=== PATIENT | male | born 1940 | race Asian ===

== ENCOUNTER 2019-05-17 10:58 | Outpatient (CLI) | payer MEDICARE, OTHER | END 2019-05-17 10:59 | disposition short-term general hospital (02) | LOC: EMS 10:58 | PROVIDERS: ATTEND Surgery | DX: S06.5X9A Traumatic subdural hemorrhage with loss of consciousness of unspecified duration, initial encounter (principal); X58.XXXA Exposure to other specified factors, initial encounter | CPT/HCPCS: A0425; A0427 ==

== ENCOUNTER 2021-11-01 09:23 | Emergency (ER) | payer MEDICARE, OTHER ==
--- NOTE | 2021-11-01 10:27 | ED Physician Documentation ---
PD HPI ABD PAIN - Stated complaint Stated Complaint: RUQ PX/RT SIDE BACK PX - Chief complaint Chief Complaint: Abd Pain - History obtained from History obtained from: Patient - History of Present Illness Timing - onset: How many days ago (4) Timing - duration: Days (4) Timing - details: Gradual onset, Still present, Constant Quality: Cramping, Aching, Pain Location: RUQ Radiation: Right flank Improved by: Laying still. No: Eating Worsened by: Eating, Moving, Palpation Associated symptoms: Nausea. No: Fever, Vomiting, Diarrhea, Dysuria Similar symptoms before: Has not had sx before Review of Systems Constitutional: denies: Fever, Chills Nose: denies: Rhinorrhea / runny nose, Congestion Throat: denies: Sore throat Cardiac: denies: Chest pain / pressure, Palpitations Respiratory: denies: Cough GI: reports: Abdominal Pain, Nausea. denies: Vomiting, Diarrhea, Bloody / black stool : denies: Dysuria Skin: denies: Rash, Lesions Musculoskeletal: denies: Neck pain, Back pain Neurologic: reports: Generalized weakness. denies: Focal weakness, Numbness, Near syncope Immunocompromised: denies: Immunocompromised PD PAST MEDICAL HISTORY - Past Medical History Cardiovascular: None Respiratory: None Endocrine/Autoimmune: None GI: None - Past Surgical History Past Surgical History: No - Present Medications Home Medications: Ambulatory Orders Medication Instructions Recorded Confirmed Ondansetron Odt [Zofran] 4 mg TL Q6H PRN #10 tablet 11/01/21 Oxycodone HCl/Acetaminophen 1 each PO Q6H PRN #14 tablet 11/01/21 [Percocet 5-325 mg Tablet] - Allergies Allergies/Adverse Reactions: Allergies Allergy/AdvReac Type Severity Reaction Status Date / Time lisinopril Allergy Edema Verified 11/01/21 10:03 PD ED PE NORMAL - Vitals Vital signs reviewed: Yes - General General: Alert and oriented X 3, Well developed/nourished, Other (appears in pain right upper abd. ) - HEENT HEENT: Pharynx benign - Neck Neck: Supple, no meningeal sign, No adenopathy - Cardiac Cardiac: RRR, No murmur - Respiratory Respiratory: Clear bilaterally - Abdomen Abdomen: Soft, Non distended, No organomegaly, Other (Acutely tender right upper quadrant with localized guarding and percussion tenderness. Some referred tenderness from the left upper as well. Lower abdomen nontender. No CVA tenderness.). No: Normal bowel sounds (increased general sounds. ) - Male Male : Deferred - Rectal Rectal: Deferred - Back Back: No CVA TTP - Derm Derm: Normal color, Warm and dry - Extremities Extremities: Normal ROM s pain, No edema, No calf tenderness / cord - Neuro Neuro: Alert and oriented X 3, No motor deficit, Normal speech Results - Vitals Vitals: Vital Signs - 24 hr 11/01/21 11/01/21 11/01/21 09:53 10:11 12:02 Temperature 35.9 C L Heart Rate 101 H 89 75 Respiratory 24 19 11 L Rate Blood Pressure 94/55 L 115/67 111/56 L O2 Saturation 96 96 11/01/21 11/01/21 11/01/21 13:00 15:20 16:37 Temperature 36.8 C Heart Rate 76 80 74 Respiratory 10 L 23 18 Rate Blood Pressure 119/61 113/54 L 109/55 L O2 Saturation 96 93 94 11/01/21 17:00 Temperature Heart Rate 79 Respiratory 20 Rate Blood Pressure 110/65 O2 Saturation 95 Oxygen O2 Source Room air - EKG (time done) 09:57 Rate: Rate (enter#) (97) Rhythm: NSR [place]: Normal Intervals: Normal HI, RBBB QRS: Normal Ischemia: Normal ST segments, Non specific changes. No: ST elevation c/w ischemia, ST depression Compare to prior EKG: Old EKG unavailable - Labs Labs: Laboratory Tests 11/01/21 11/01/21 11/01/21 10:06 11:12 11:12 WBC 7.1 RBC 6.03 Hgb 14.2 Hct 42.9 MCV 71.1 L MCH 23.5 L MCHC 33.1 RDW 13.8 Plt Count 133 MPV 9.9 Neut # (Auto) Not Reportable Lymph # (Auto) Not Reportable [place] # (Auto) Not Reportable Eos # (Auto) Not Reportable Baso # (Auto) Not Reportable Absolute Nucleated RBC Not Reportable Total Counted 100 Band Neuts % (Manual) 9 Abnorm Lymph % (Manual) 0 Nucleated RBC % Not Reportable Neutrophils # (Manual) 5.9 Lymphocytes # (Manual) 0.6 L Monocytes # (Manual) 0.6 Eosinophils # (Manual) 0.0 Basophils # (Manual) 0.0 Differential Comment MANUAL DIFFERENTIAL Platelet Estimate NORMAL (130-450,000) Platelet Morphology NORMAL APPEARANCE RBC Morph Micro Appear NORMAL APPEARANCE Sodium 131 L Potassium 4.0 Chloride 96 L Carbon Dioxide 24 Anion Gap 11.0 BUN 49 H Creatinine 1.6 H Estimated GFR (MDRD) 41 L Glucose 220 H Calcium 9.2 Total Bilirubin 1.1 H AST 37 ALT 28 Alkaline Phosphatase 45 Total Protein 7.3 Albumin 3.3 Globulin 4.0 Albumin/Globulin Ratio 0.8 L Lipase 17 L Urine Color DARK YELLOW Urine Clarity HAZY Urine pH 5.0 Ur Specific [place] >=1.030 H Urine Protein 30 H Urine Glucose (UA) NEGATIVE Urine Ketones NEGATIVE Urine Occult Blood NEGATIVE Urine Nitrite NEGATIVE Urine Bilirubin NEGATIVE Urine Urobilinogen 0.2 (NORMAL) Ur Leukocyte Esterase NEGATIVE Urine RBC None Seen Urine WBC 0-3 Ur Squamous Epith Cells NONE SEEN Urine Bacteria Moderate H Ur Microscopic Review INDICATED Urine Culture Comments NOT INDICATED - Rads (name of study) Abd/pelvic CT Radiology: Prelim report reviewed (Bladder wall thickening and pericholecystic fluid and edema. Some wall thickening into the first part of the duodenum that appeared extension from the gallbladder.), See rad report PD MEDICAL DECISION MAKING - ED course Complexity details: re-evaluated patient (Remains relatively low pain with still some localized tenderness right upper quadrant but less than it was. Given the repeat dose of medicine.), considered differential (The patient's symptoms are consistent with possible gallbladder. Labs are good. Ultrasound showed acute cholecystitis with some extension of duodenitis felt related to the gallbladder per radiology. will talk with Dr. Miramontes.), d/w patient ED course: Dr. Mack was in doing a colonoscopy when initially consulted or called for. He came to the department after his procedure. I was in the room seeing the patient so we went back and did another colonoscopy. Subsequently came back again. I talked to him about the patient. He states he would come back and see the patient after the next colonoscopy. The patient had a relatively prolonged ED stay awaiting surgical consultation after he did several colonoscopies. Subsequently came and felt the patient could be treated outpatient. The patient was agreeable to this. He does have a fair amount of inflammation of the gallbladder as well as the duodenum so unclear whether he will maintain well with oral medication but we can give it a try. Patient had return precautions for uncontrollable pain, vomiting, fever, other concerns. Departure - Departure Disposition: 01 Home, Self Care Clinical Impression: Right upper quadrant abdominal pain, Acute cholecystitis Condition: Stable Record reviewed to determine appropriate education?: Yes Instructions: ED Gallbladder Infec Conf Follow-Up: Radha Dudley MD [Primary Care Provider] - Fabiano Miramontes MD [Provider Admit Priv/Credential] - Prescriptions: Oxycodone HCl/Acetaminophen [Percocet 5-325 mg Tablet] 1 each PO Q6H PRN #14 tablet PRN Reason: pain Ondansetron Odt [Zofran] 4 mg TL Q6H PRN #10 tablet PRN Reason: Nausea / Vomiting Comments: Frequent fluids to maintain hydration. [place] food without any fatty foods over the next several days until follow-up next week. Your ultrasound and blood tests are consistent with an inflammation of the gallbladder (cholecystitis). This may quiet down with some anti-inflammatories and pain medicine and nonfatty foods over the next several days. If the pain and symptoms continue, it may be the solution will be gallbladder surgery to remove it. Return if worsening pain, repetitive vomiting, fever or other concerns. Otherwise follow-up with the surgery clinic next week, call first thing Thursday morning for a follow-up appointment and let them know that you have been seen here in the ER. I transmitted your prescriptions to [facility] pharmacy. [facility] but you would not be able to get any medications until Thursday and you are likely to need some in the meantime. Discharge Date/Time: 11/01/21 17:23
[2021-11-01] MEDS ORDERED: KETOROLAC 15 MG/ML VIAL IVP STA (11:00)
[2021-11-01] MEDS ORDERED: ONDANSETRON 4 MG/2 ML VIAL IVP STA (11:00)
[2021-11-01] MEDS ORDERED: HYDROmorphone 1 MG/ML CARPUJECT IVP STA (11:00)
[2021-11-01] MEDS ORDERED: SODIUM CHLORIDE 0.9% 1,000 ML IV STA ×2 (11:00→15:36)
[2021-11-01 11:21] LABS: BASOPHILS % (AUTO) 0.6 %; EOSINOPHILS % (AUTO) 1.5 %; HCT - HEMATOCRIT 42.9 % (42.0-52.0); HGB - HEMOGLOBIN 14.2 g/dL (14.0-18.0); LYMPHOCYTES % (AUTO) 6.6 %; MEAN CORPUSCULAR HEMOGLOBIN 23.5 pg (27.0-31.0); MEAN CORPUSCULAR HGB CONC 33.1 g/dL (32.0-36.0); MEAN CORPUSCULAR VOLUME 71.1 fL (80.0-94.0); MEAN PLATELET VOLUME 9.9 fL (7.4-11.4); MONOCYTES % (AUTO) 8.7 %; NEUTROPHILS % (AUTO) 82.2 %; PLT - PLATELET COUNT 133 10^3/uL (130-450); RED BLOOD COUNT 6.03 10^6/uL (4.70-6.10); RED CELL DISTRIBUTION WIDTH 13.8 % (12.0-15.0); WHITE BLOOD COUNT 7.1 x10^3/uL (4.8-10.8)
[2021-11-01 11:25] LABS: ABNORMAL LYMPHS % (MANUAL) 0 %
[2021-11-01 11:33] LABS: ALBUMIN 3.3 g/dL (3.2-5.5); ALBUMIN/GLOBULIN RATIO 0.8 (1.0-2.2); BILIRUBIN,TOTAL 1.1 mg/dL (0.2-1.0); CALCIUM 9.2 mg/dL (8.5-10.3); CREATININE 1.6 mg/dL (0.6-1.2); TOTAL PROTEIN 7.3 g/dL (6.7-8.2)
[2021-11-01 11:43] LABS: BAND NEUTROPHILS % (MANUAL) 9 %; DIFFERENTIAL COMMENT MANUAL DIFFERENTIAL; LYMPHOCYTES # (MANUAL) 0.6 10^3/uL (1.5-3.5); LYMPHOCYTES % (MANUAL) 8 %; MONOCYTES # (MANUAL) 0.6 10^3/uL (0.0-1.0); NEUTROPHILS # (MANUAL) 5.9 10^3/uL (1.5-6.6); PLATELET ESTIMATE, MANUAL NORMAL (130-450,000) (NORMAL); PLATELET MORPHOLOGY NORMAL APPEARANCE (NORMAL); RBC MORPHOLOGY (MULTIPLE) NORMAL APPEARANCE (NORMAL)
[2021-11-01] MEDS ORDERED: iohexoL-300 100 ML VIAL ONE (11:50)
[2021-11-01 11:53] LABS: BILIRUBIN,URINE NEGATIVE (NEGATIVE); GLUCOSE, URINE (UA) NEGATIVE (NEGATIVE); KETONES,URINE (UA) NEGATIVE (NEGATIVE); LEUKOCYTE ESTERASE, URINE NEGATIVE (NEGATIVE); NITRITE,URINE NEGATIVE (NEGATIVE); OCCULT BLOOD,URINE NEGATIVE (NEGATIVE); PROTEIN,URINE 30 mg/dL (NEGATIVE); UROBILINOGEN,URINE 0.2 (NORMAL) E.U./dL (NORMAL)
[2021-11-01 11:58] LABS: CLARITY,URINE HAZY (CLEAR)
[2021-11-01 12:02] LABS: BACTERIA,URINE Moderate /HPF (None Seen); RBC,URINE None Seen /HPF (0-5); SQUAMOUS EPITHELIAL CELL,UR NONE SEEN (<= Few); WBC,URINE 0-3 /HPF (0-3)
[2021-11-01] MEDS ORDERED: iohexoL-300 100 ML VIAL IVP ONE (12:10)
--- NOTE | 2021-11-01 12:41 | CT Report ---
PROCEDURE: Abdomen/Pelvis W INDICATIONS: Abdominal pain, acute, nonlocalized CONTRAST: IV CONTRAST: Isovue 300 ml: 100 PO CONTRAST: *NO PO CONTRAST TECHNIQUE: After the administration of intravenous contrast, 5 mm thick sections acquired from the diaphragms to the symphysis. 5 mm thick coronal and sagittal reformats were acquired. For radiation dose reducti on, the following was used: automated exposure control, adjustment of mA and/or kV according to mervin ent size. COMPARISON: 05/11/2014. FINDINGS: Image quality: Excellent. ABDOMEN: Lung bases: There is a small right pleural effusion. Linear opacities are demonstrated in the lung ba ses consistent with atelectasis. Small regions of consolidation or confluent atelectasis also demonst rated along the right hemidiaphragm and medially in the left lower lobe. There are bilateral calcifie d pleural plaques consistent with prior asbestos exposure. Heart size is mildly enlarged. There is ex tensive coronary arterial vascular calcifications. Solid organs: There is hypoattenuation of the liver consistent with fatty infiltration with relative sparing along the gallbladder fossa. There is also heterogeneous enhancement anteriorly within the li rashad along the gallbladder fossa. A small subcapsular fluid collection is demonstrated anteriorly chayo g the right hepatic lobe with associated mild mass effect on the hepatic parenchyma. The collection m easures approximately 2.0 x 0.8 x 3.0 cm. The gallbladder is distended with wall thickening and enhancement as well as pericholecystic fat stra nding. No calcified gallstones identified. Biliary system is non dilated. Pancreas enhances normally. No adrenal nodules. Kidneys demonstrate no hydronephrosis. Peritoneum and bowel: There is mild segmental wall thickening of the first and second portions of th e duodenum with mild adjacent fat stranding. There is a duodenal diverticulum along the distal portio n of the duodenum adjacent to the uncinate process without associated wall thickening. The remainder of the small bowel demonstrates normal caliber and wall thickness. No pericecal inflammatory changes to suggest appendicitis. There is gas and fluid distention of the descending and transverse colon wit h air-fluid levels in the ascending colon. No transition points to suggest obstruction. Findings like ly represent a gastroenteritis. There is colonic diverticulosis without acute diverticular colitis. T here is a small amount of intraperineal free fluid predominantly within the right upper quadrant. Nodes and vessels: No retroperitoneal or mesenteric adenopathy by size criteria. Aorta and inferior vena cava are normal in size. Miscellaneous: No ventral hernias. PELVIS: Genitourinary: Bladder wall thickness is normal. Miscellaneous: No inguinal hernias or adenopathy. Bones: No suspicious bony lesions. Indistinct sclerosis within the S1 vertebra appears similar to t he prior study. No vertebral body compression fractures. IMPRESSION: 1. Gallbladder wall thickening and enhancement with pericholecystic fat stranding. Although no calcif ied gallstones are identified, findings are suggestive of acute cholecystitis. Further evaluation may be obtained with ultrasound if clinically indicated. Findings discussed with Dr. Shah on 2 at 12:35 PM. 2. Heterogeneous enhancement within the liver along the gallbladder fossa likely represents reactive changes. Diffuse fatty infiltration is also demonstrated. 3. Small subcapsular fluid collection along the anterior right hepatic lobe is nonspecific. Although this demonstrates a thin wall, given its proximity to the inflammatory changes along the gallbladder a developing abscess cannot be excluded. 4. Segmental wall thickening and enhancement of the first and second portions of the duodenum likely representing reactive changes secondary to adjacent inflammatory changes involving the gallbladder. T he differential includes a nonspecific duodenitis. 5. Small right pleural effusion with associated atelectasis. Small areas of consolidation along the r ight hepatic dome and medial left lower lobe likely represent atelectasis and less likely pneumonia. 6. Bilateral calcified pleural plaques demonstrated consistent with sequelae of prior specimens expos ure. Reviewed by: Kyle Borden MD on 11/01/2021 12:40 PM PST Approved by: Kyle Borden MD on 11/01/2021 12:40 PM PST Station ID: [id number]
[2021-11-01] MEDS ORDERED: HYDROcod/ACETAM 5/325 MG TABLET PO STA (15:54)
--- NOTE | 2021-11-01 16:05 | CONSULTATION NOTE ---
Referring Provider Consult Date: 11/01/21 Chief Complaint - Chief Complaint Chief Complaint: right upper quadrant pain x 2 days History of Present Illness - History Obtained From Records Reviewed: yes History obtained from: pt Exam Limitations: none - History of Present Illness HPI Comment/Other: ruq pain going to back yesterday starting 2 days ago after eating [employer] rot[employer]erie chicken. feeling better after being seen, evaluated, treated in ED. Minimal pain and tenderness. No nausea. No similar prior symptoms. Meds/Allgy - Allergies Allergies/Adverse Reactions: Allergies Allergy/AdvReac Type Severity Reaction Status Date / Time lisinopril Allergy Edema Verified 11/01/21 10:03 Review of Systems - Other Findings Other Findings: 10 pt ros as above otherwise unremarkable denies heart or lung problem Exam - Vital Signs Reviewed Vital Signs: Yes Vital Signs: Vital Signs x48h Temp Pulse Resp BP Pulse Ox 11/01/21 15:20 80 23 113/54 L 93 11/01/21 13:00 76 10 L 119/61 96 11/01/21 12:02 75 11 L 111/56 L 11/01/21 10:11 89 19 115/67 96 11/01/21 09:53 35.9 C L 101 H 24 94/55 L 96 - Physical Exam General Appearance: positive: No acute distress, Alert Eyes Bilateral: positive: PERRL, EOMI, No scleral icterus ENT: positive: No signs of dehydration Neck: positive: No JVD Respiratory: positive: No respiratory distress, Breath sounds nml Cardiovascular: positive: Regular rate & rhythm Abdomen: positive: No distention, Other (minimal tenderness to deep palpation right upper quadrant) Neurologic/Psychiatric: positive: Oriented x3 Conclusion/Plan - Problem List (1) Gallbladder pain Conclusion/Plan: he is feeling improved. if he can tolerate clears and pain reasonable he may go home and follow up with surgery next week. gallbladder surgery and importance of avoiding fatty foods discussed. He states his had her gallbladder removed [phone] office - Lab Results Fish Bones: 11/01/21 11:12 11/01/21 11:12
[2021-11-01 17:22] VITALS: BP 110/65
== END 2021-11-01 17:23 | disposition home or self-care (01) ==
LOC: ED 09:23
DX: K81.9 Cholecystitis, unspecified (principal)
CPT/HCPCS: 36415; 74177; 80053; 81001; 83690; 85025; 93005; 96374; 99284; A9270; J1170; Q9967; 81003; 87086

== ENCOUNTER 2021-11-06 11:29 | Emergency (ER) | payer MEDICARE, OTHER ==
[2021-11-06 12:42] VITALS: BP 152/62
[2021-11-06 13:33] LABS: BASOPHILS # (AUTO) 0.1 10^3/uL (0.0-0.1); BASOPHILS % (AUTO) 0.6 %; EOSINOPHILS # (AUTO) 0.1 10^3/uL (0.0-0.7); HCT - HEMATOCRIT 39.1 % (42.0-52.0); HGB - HEMOGLOBIN 12.7 g/dL (14.0-18.0); LYMPHOCYTES # (AUTO) 1.2 10^3/uL (1.5-3.5); LYMPHOCYTES % (AUTO) 10.1 %; MEAN CORPUSCULAR HEMOGLOBIN 23.6 pg (27.0-31.0); MEAN CORPUSCULAR HGB CONC 32.5 g/dL (32.0-36.0); MEAN CORPUSCULAR VOLUME 72.5 fL (80.0-94.0); MEAN PLATELET VOLUME 9.3 fL (7.4-11.4); MONOCYTES # (AUTO) 1.2 10^3/uL (0.0-1.0); MONOCYTES % (AUTO) 10.7 %; NEUTROPHILS # (AUTO) 8.6 10^3/uL (1.5-6.6); NEUTROPHILS % (AUTO) 74.7 %; PLT - PLATELET COUNT 287 10^3/uL (130-450); RED BLOOD COUNT 5.39 10^6/uL (4.70-6.10); RED CELL DISTRIBUTION WIDTH 13.9 % (12.0-15.0); WHITE BLOOD COUNT 11.5 x10^3/uL (4.8-10.8)
[2021-11-06 13:43] LABS: ALBUMIN 2.9 g/dL (3.2-5.5); ALBUMIN/GLOBULIN RATIO 0.7 (1.0-2.2); BILIRUBIN,TOTAL 1.1 mg/dL (0.2-1.0); CALCIUM 8.7 mg/dL (8.5-10.3); POTASSIUM 4.4 mmol/L (3.5-5.0); TOTAL PROTEIN 6.9 g/dL (6.7-8.2)
[2021-11-06 15:27] LABS: BILIRUBIN,URINE NEGATIVE (NEGATIVE); GLUCOSE, URINE (UA) NEGATIVE (NEGATIVE); KETONES,URINE (UA) TRACE mg/dL (NEGATIVE); LEUKOCYTE ESTERASE, URINE NEGATIVE (NEGATIVE); NITRITE,URINE NEGATIVE (NEGATIVE); OCCULT BLOOD,URINE NEGATIVE (NEGATIVE); PROTEIN,URINE NEGATIVE (NEGATIVE); UROBILINOGEN,URINE 0.2 (NORMAL) E.U./dL (NORMAL)
[2021-11-06 15:50] LABS: CLARITY,URINE CLEAR (CLEAR)
--- NOTE | 2021-11-06 16:16 | ED Physician Documentation ---
PD HPI ABD PAIN - Stated complaint Stated Complaint: RUQ PX/BACK PX - Chief complaint Chief Complaint: Abd Pain - History obtained from History obtained from: Patient, Family - History of Present Illness Timing - onset: How many weeks ago (1) Timing - duration: Weeks (1) Timing - details: Gradual onset, Still present Quality: Sharp, Pain Location: RUQ Radiation: Lower back Improved by: Laying still, Meds Worsened by: Eating, Moving, Breathing, Position, Palpation Associated symptoms: Constipation. No: Nausea, Vomiting, Diarrhea Similar symptoms before: Diagnosis (cholecystitis) Recently seen: Emergency Dept - Additional information Additional information: Previously well 81-year-old male has developed pain that started in his back and has radiated to his abdomen. He has right upper quadrant pain that has been present over the past week. After visiting his primary care doctor he came to the emergency department for evaluation a CT scan of the abdomen pelvis was obtained which showed a swollen gallbladder. The patient was seen by Dr. Miramontes and instructed on a liquid diet and he has come back to see his primary care doctor at the [facility] today they obtained ultrasound showing acute cholecystitis and they have sent the patient to the emergency department for evaluation. He has persistence of his pain and he has not been vomiting. He has been on a liquid diet. Review of Systems Constitutional: denies: Fever Eyes: denies: Decreased vision Ears: denies: Ear pain Nose: denies: Congestion Throat: denies: Sore throat Cardiac: denies: Chest pain / pressure, Palpitations Respiratory: denies: Dyspnea, Cough GI: reports: Abdominal Pain, Constipation. denies: Nausea, Vomiting : denies: Dysuria, Frequency PD PAST MEDICAL HISTORY - Past Medical History Cardiovascular: None Respiratory: None Endocrine/Autoimmune: None GI: None - Past Surgical History Past Surgical History: No - Present Medications Home Medications: Ambulatory Orders Medication Instructions Recorded Confirmed Ondansetron Odt [Zofran] 4 mg TL Q6H PRN #10 tablet 11/01/21 Oxycodone HCl/Acetaminophen 1 each PO Q6H PRN #14 tablet 11/01/21 [Percocet 5-325 mg Tablet] - Allergies Allergies/Adverse Reactions: Allergies Allergy/AdvReac Type Severity Reaction Status Date / Time lisinopril Allergy Edema Verified 11/06/21 12:43 PD ED PE NORMAL - Vitals Vital signs reviewed: Yes (Hypertensive) - General General: Alert and oriented X 3, No acute distress, Well developed/nourished - HEENT HEENT: Atraumatic, PERRL, EOMI - Neck Neck: Supple, no meningeal sign, No bony TTP - Cardiac Cardiac: RRR, No murmur - Respiratory Respiratory: No respiratory distress, Clear bilaterally - Abdomen Abdomen: Normal bowel sounds, Soft, Non distended, No organomegaly, Other (Specific right upper quadrant tenderness is reproducible) - Back Back: No CVA TTP, No spinal TTP - Derm Derm: Normal color, Warm and dry, No rash - Extremities Extremities: No deformity, No edema - Neuro Neuro: Alert and oriented X 3, 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, No motor deficit, No sensory deficit, Normal speech Eye Opening: Spontaneous Motor: Obeys Commands Verbal: Oriented GCS Score: 15 - Psych Psych: Normal mood, Normal affect Results - Vitals Vitals: Vital Signs - 24 hr 11/06/21 12:36 Temperature 35.9 C L Heart Rate 89 Respiratory 16 Rate Blood Pressure 152/62 H O2 Saturation 96 Oxygen O2 Source Room air - Labs Labs: Laboratory Tests 11/06/21 11/06/21 11/06/21 12:51 13:25 13:25 WBC 11.5 H RBC 5.39 Hgb 12.7 L Hct 39.1 L MCV 72.5 L MCH 23.6 L MCHC 32.5 RDW 13.9 Plt Count 287 MPV 9.3 Neut # (Auto) 8.6 H Lymph # (Auto) 1.2 L [place] # (Auto) 1.2 H Eos # (Auto) 0.1 Baso # (Auto) 0.1 Absolute Nucleated RBC 0.00 Nucleated RBC % 0.0 Sodium 132 L Potassium 4.4 Chloride 93 L Carbon Dioxide 29 Anion Gap 10.0 BUN 16 Creatinine 1.0 Estimated GFR (MDRD) 71 L Glucose 136 H Calcium 8.7 Total Bilirubin 1.1 H AST 32 ALT 43 Alkaline Phosphatase 156 H Total Protein 6.9 Albumin 2.9 L Globulin 4.0 Albumin/Globulin Ratio 0.7 L Lipase 18 L Urine Color YELLOW Urine Clarity CLEAR Urine pH 6.0 Ur Specific [place] 1.015 Urine Protein NEGATIVE Urine Glucose (UA) NEGATIVE Urine Ketones TRACE Urine Occult Blood NEGATIVE Urine Nitrite NEGATIVE Urine Bilirubin NEGATIVE Urine Urobilinogen 0.2 (NORMAL) Ur Leukocyte Esterase NEGATIVE Ur Microscopic Review NOT INDICATED Urine Culture Comments NOT INDICATED Procedures - Bedside sono Bedside sono by EMP: With use but side ultrasound the right upper quadrant is imaged the gallbladder is distended it is sonographically tender. PD MEDICAL DECISION MAKING - ED course Complexity details: reviewed results, re-evaluated patient, considered differential, d/w patient, d/w family ED course: 81-year-old male returns to the emergency department at the direction of his primary care doctor after receiving and a ultrasound image demonstrating cholecystitis. The patient has been evaluated by Dr. Miramontes last week and continues to have pain. He is not really interested in surgery and would like to keep his gallbladder if he can. He has been undergoing a liquid diet and has a reduction in his pain. He appears comfortable in the emergency department. He does have a mildly elevated white blood cell count and a sonographically tender gallbladder. Dr. Miramontes did come into the emergency department offered to take the patient to surgery in the morning and the patient refused. Dr. Miramontes will follow-up with him in his clinic. Departure - Departure Disposition: 01 Home, Self Care Clinical Impression: Cholecystitis Condition: Stable Instructions: ED Gallbladder Infec Poss Follow-Up: Fabiano Miramontes MD [Provider Admit Priv/Credential] - Discharge Date/Time: 11/06/21 16:59
--- NOTE | 2021-11-06 17:20 | PROVIDER PROGRESS NOTE ---
Subjective - Prog Note Date Prog Note Date: 11/06/21 - Subjective Pt reports feeling: Improved (denies nausea. drinking well. pain improving. he had an ultrasound of his gallbladder at the [facility] and was told to go to the ed) Objective - Vital Signs/Intake & Output Reviewed Vital Signs: Yes Vital Signs: Vital Signs x48h Temp Pulse Resp BP Pulse Ox 11/06/21 12:36 35.9 C L 89 16 152/62 H 96 - Objective General Appearance: positive: No acute distress, Alert Eyes Bilateral: positive: PERRL, EOMI, No scleral icterus Neck: positive: No JVD Respiratory: positive: No respiratory distress Abdomen: positive: No distention, Other (minimal ruq tenderness with deep palpation) Neurologic/Psychiatric: positive: Oriented x3 - Lab Results Fish Bones: 11/06/21 13:25 11/06/21 13:25 Other Labs: Lab Results x24hrs 11/06/21 11/06/21 11/06/21 Range/Units 13:25 13:25 12:51 WBC 11.5 H (4.8-10.8) x10^3/uL RBC 5.39 (4.70-6.10) 10^6/uL Hgb 12.7 L (14.0-18.0) g/dL Hct 39.1 L (42.0-52.0) % MCV 72.5 L (80.0-94.0) fL MCH 23.6 L (27.0-31.0) pg MCHC 32.5 (32.0-36.0) g/dL RDW 13.9 (12.0-15.0) % Plt Count 287 (130-450) 10^3/uL MPV 9.3 (7.4-11.4) fL Neut # (Auto) 8.6 H (1.5-6.6) 10^3/uL Lymph # (Auto) 1.2 L (1.5-3.5) 10^3/uL [place] # (Auto) 1.2 H (0.0-1.0) 10^3/uL Eos # (Auto) 0.1 (0.0-0.7) 10^3/uL Baso # (Auto) 0.1 (0.0-0.1) 10^3/uL Absolute Nucleated RBC 0.00 x10^3/uL Nucleated RBC % 0.0 /100WBC Sodium 132 L (135-145) mmol/L Potassium 4.4 (3.5-5.0) mmol/L Chloride 93 L (101-111) mmol/L Carbon Dioxide 29 (21-32) mmol/L Anion Gap 10.0 (6-13) BUN 16 (6-20) mg/dL Creatinine 1.0 (0.6-1.2) mg/dL Estimated GFR (MDRD) 71 L (>89) Glucose 136 H (70-100) mg/dL Calcium 8.7 (8.5-10.3) mg/dL Total Bilirubin 1.1 H (0.2-1.0) mg/dL AST 32 (10-42) IU/L ALT 43 (10-60) IU/L Alkaline Phosphatase 156 H (42-121) IU/L Total Protein 6.9 (6.7-8.2) g/dL Albumin 2.9 L (3.2-5.5) g/dL Globulin 4.0 (2.1-4.2) g/dL Albumin/Globulin Ratio 0.7 L (1.0-2.2) Lipase 18 L (22-51) U/L Urine Color YELLOW Urine Clarity CLEAR (CLEAR) Urine pH 6.0 (5.0-7.5) PH Ur Specific [place] 1.015 (1.002-1.030) Urine Protein NEGATIVE (NEGATIVE) mg/dL Urine Glucose (UA) NEGATIVE (NEGATIVE) mg/dL Urine Ketones TRACE (NEGATIVE) mg/dL Urine Occult Blood NEGATIVE (NEGATIVE) Urine Nitrite NEGATIVE (NEGATIVE) Urine Bilirubin NEGATIVE (NEGATIVE) Urine Urobilinogen 0.2 (NORMAL) (NORMAL) E.U./dL Ur Leukocyte Esterase NEGATIVE (NEGATIVE) Ur Microscopic Review NOT INDICATED Urine Culture Comments NOT INDICATED Assessment/Plan - Problem List (1) Cholecystitis Impression: admit and surgery tomorrow morning offered. he is feeling better and does not want urgent surgery. ok to go home on low fat diet. I explained if he needs prescription pain pills he should have surgery sooner. plan follow up in the office next week and surgery when desired. he currently is not ready to have his gallbladder removed
== END 2021-11-06 16:59 | disposition home or self-care (01) ==
LOC: ED 11:29
DX: K81.9 Cholecystitis, unspecified (principal)
CPT/HCPCS: 36415; 80053; 81001; 81003; 83690; 85025; 87086; 99283

== ENCOUNTER 2021-11-18 10:06 | Outpatient (CLI) | payer MEDICARE, OTHER | END 2021-11-18 10:07 | disposition short-term general hospital (02) | LOC: EMS 10:06 | DX: R10.11 Right upper quadrant pain (principal); R53.1 Weakness | CPT/HCPCS: A0425; A0427 ==

== ENCOUNTER 2024-05-20 15:58 | Outpatient (CLI) | payer MEDICARE, OTHER ==
--- NOTE | 2024-05-20 21:18 | XRAY Report ---
PROCEDURE: Foot 3+V BL (Weight Bearing) INDICATIONS: BILATERAL FOOT PAIN TECHNIQUE: 6 views of the foot were acquired. COMPARISON: None. FINDINGS: Bones: No fractures or dislocations. Bilateral pes planus alignment with calcaneal pitch of 16 degr ees bilaterally. Moderate left side hallux valgus alignment with marked first MTP joint space narrowi ng and juxta-articular osteophytosis. Moderate right first MTP joint space narrowing and juxta-articu lar osteophytosis. Mild bilateral diffuse IP joint space narrowing and juxta-articular osteophytosis. Mild degenerative changes of the midfoot with dorsal osteophytosis. No suspicious bony lesions. Soft tissues: No tibiotalar joint effusion. Achilles tendon appears normal. Small bilateral planta r and Achilles calcaneal enthesophytes. Left-sided vascular calcifications. Left first MTP joint medi al soft tissue bunion. IMPRESSION: 1.No acute bony abnormality bilaterally. 2.Left foot demonstrate pes planus alignment. Moderate hallux valgus alignment. 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 3.Right foot demonstrate pes planus alignment. 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 Reviewed by: Chacha Miranda MD on 05/20/2024 9:17 PM PDT Approved by: Chacha Miranda MD on 05/20/2024 9:17 PM PDT Station ID: [id number]
== END 2024-05-20 15:59 | disposition home or self-care (01) ==
LOC: DI 15:58
PROVIDERS: ATTEND Podiatrist
DX: M19.071 Primary osteoarthritis, right ankle and foot (principal); M19.072 Primary osteoarthritis, left ankle and foot; M21.42 Flat foot [pes planus] (acquired), left foot; M21.41 Flat foot [pes planus] (acquired), right foot; M20.12 Hallux valgus (acquired), left foot